=== PATIENT | female | born 1935 ===

== ENCOUNTER 2023-12-25 06:22 | Day surgery (SDC) | payer OTHER ==
[2023-12-24 09:20] LABS: HEMOGLOBIN 14.4 g/dL (12.0-15.00); MEAN CELL VOLUME 98.9 fL (80.00-100.00); MEAN CORPUSCULAR HEMOGLOBIN 34.6 pg (27.00-32.0); PLATELET COUNT 181 K/uL (150-450); RED BLOOD COUNT 4.15 M/uL (4.00-6.00); RED CELL DISTRIBUTION WIDTH 12.7 % (11.5-14.5)
[2023-12-24 09:23] LABS: PH,URINE 5.5 (5.0-8.0); URINE APPEARANCE Cloudy; URINE BILIRRUBIN Negative (NEGATIVE); URINE BLOOD Trace; URINE COLOR Yellow; URINE GLUCOSE Negative (NEGATIVE); URINE LEUKOCYTE Large; URINE NITRATE Negative; URINE PROTEIN Trace (NEGATIVE); URINE UROBILINOGEN 0.2 E.U./dl
[2023-12-24 09:24] LABS: URINE BACTERIA 666.4 uL (0.0-1933); URINE EPITHELIAL CELLS 10.5 uL (0.0-38.8); URINE RBC 21.6 uL (0.0-20.8); URINE WBC 551.7 uL (0.0-23.2)
[2023-12-24 09:58] LABS: ALBUMIN 4.2 gm/dL (3.4-5.0); BILIRUBIN TOTAL 0.94 mg/dL (0.3-1.2); CALCIUM 9.8 mg/dL (8.5-10.1); CREATININE SERUM 0.95 mg/dL (0.55-1.02); GFR 55.77; GLOBULINA 3.2 G/DL (2.4-3.5); POTASSIUM 4.71 mEq/L (3.5-5.1); TOTAL PROTEIN 7.4 gm/dL (6.4-8.2)
[2023-12-24 10:04] LABS: INR 1.03; PARTIAL THROMBOPLASTIN TIME 27.6 SECONDS (22.0-34.0); PROTHROMBIN TIME 10.8 SECONDS (9.0-11.5)
[~2023-12-25] VITALS: Ht 152.4 cm; Wt 52.2 kg
[~2023-12-25 06:22] MED LIST: LEVO-T100 MCG PO
[2023-12-25] MEDS ORDERED: CEFAZOLIN SODIUM 1,000 MG VIAL IV ONE (15:00)
== END 2023-12-25 19:15 | disposition home or self-care (01) ==
LOC: CIR.AMB 06:22
PROVIDERS: ATTEND Surgery
DX: C50.512 Malignant neoplasm of lower-outer quadrant of left female breast (principal); C50.411 Malignant neoplasm of upper-outer quadrant of right female breast; R00.1 Bradycardia, unspecified; E03.9 Hypothyroidism, unspecified; H52.4 Presbyopia
CPT/HCPCS: 19301; 38525; 19281; 19282; A9541; L8699

== ENCOUNTER 2024-11-10 13:04 | Outpatient (CLI) | payer OTHER | END 2024-11-10 13:06 | disposition home or self-care (01) | LOC: RAD 13:04 | PROVIDERS: ATTEND Internal Medicine | DX: M79.641 Pain in right hand (principal); M79.642 Pain in left hand ==

== ENCOUNTER 2024-11-10 13:39 | Outpatient (CLI) | payer OTHER ==
[2024-11-10 14:42] LABS: CREATININE SERUM 0.88 mg/dL (0.55-1.02); GFR 60.93
== END 2024-11-10 13:44 | disposition home or self-care (01) ==
LOC: LAB 13:39
PROVIDERS: ATTEND Radiology Diagnostic Radiology
DX: C50.912 Malignant neoplasm of unspecified site of left female breast (principal)